=== PATIENT | female | born 1945 | race Caucasian/White ===

== ENCOUNTER 2019-05-10 16:08 | Emergency (ER) | payer MEDICARE, MEDICAID ==
[~2019-05-10] VITALS: Ht 152.4 cm; Wt 70.8 kg
[~2019-05-10 16:08] MED LIST: ASPI81CH43 PO; ESOM40CA39 PO; METF-370 PO; METO-169 PO
[2019-05-10 16:46] VITALS: BP 157/72
== END 2019-05-10 21:53 | disposition left against medical advice (07) ==
LOC: ER 16:08
DX: R35.0 Frequency of micturition (principal); Z53.21 Procedure and treatment not carried out due to patient leaving prior to being seen by health care provider

== ENCOUNTER 2019-05-11 07:19 | Emergency (ER) | payer MEDICAID, MEDICARE ==
[~2019-05-11] VITALS: Ht 154.9 cm; Wt 70.8 kg
[2019-05-11 08:03] LABS: Basophils # (auto) 0.1 uL; Basophils % (auto) 1.1 % (0.0-2.0); Eosinophils # (auto) 0.2 uL; Eosinophils % (auto) 2.6 % (0.0-7.0); Hematocrit 41.5 % (36.0-46.0); Hemoglobin 13.5 g/dL (12.2-16.2); Lymphocytes # (auto) 1.5 uL; Lymphocytes % (auto) 17.4 % (10.0-50.0); Mean Corpuscular Hemoglobin 27.7 pg (28.0-32.0); Mean Corpuscular Hgb Conc. 32.4 g/dL (32.0-36.0); Mean Corpuscular Volume 85.5 fL (80.0-100.0); Monocytes # (auto) 0.6 uL; Monocytes % (auto) 7.5 % (0.0-12.0); Neutrophils # (auto) 6.1 uL; Neutrophils % (auto) 71.4 % (37.0-80.0); Platelet Count (auto) 349 10^3/uL (140-450); Red Blood Cells 4.86 10^6/uL (4.0-5.20); Red Cell Distribution Width 17.8 % (11.8-14.3); White Blood Cell 8.6 10^3/uL (4.4-10.8)
[2019-05-11 08:19] LABS: Albumin 3.8 g/dL (3.4-5.0); BUN/Creatinine Ratio 13.7; Calcium 8.5 mg/dL (8.5-10.1); Potassium 3.7 mmol/L (3.5-5.1)
[2019-05-11 08:22] LABS: Bilirubin, Total 0.3 mg/dL (0.2-1.0); Total Protein 7.4 g/dL (6.4-8.2)
[2019-05-11 09:22] LABS: Urine Bacteria NONE SEEN /hpf (None Seen); Urine Blood 2+ /uL (Negative); Urine Mucus FEW (None Seen); Urine Specific Gravity 1.018 (1.001-1.035); Urine WBC 4026 /hpf (0 - 5); Urine WBC Clumps PRESENT /hpf (None Seen)
[2019-05-11] MEDS ORDERED: SODIUM CHLORIDE 0.9% 1,000 ML IV ONE (10:15)
[2019-05-11] MEDS ORDERED: cefTRIAXone 1GM/50ML D5W 50 ML IV ONE (10:15)
[2019-05-11 10:22] LABS: Amylase 34 U/L (25-115); Lipase 245 U/L (73-393)
[2019-05-11] MEDS ORDERED: MAGNESIUM CITRATE SOLUTION 300 ML BTL PO ONE (13:00)
[2019-05-11 13:59] VITALS: BP 188/86
== END 2019-05-11 14:55 | disposition home or self-care (01) ==
LOC: ER 07:26
DX: N30.00 Acute cystitis without hematuria (principal); K59.00 Constipation, unspecified; J44.9 Chronic obstructive pulmonary disease, unspecified; E11.9 Type 2 diabetes mellitus without complications; K21.9 Gastro-esophageal reflux disease without esophagitis; I10 Essential (primary) hypertension
CPT/HCPCS: 36415; 72192; 80053; 81001; 82150; 83690; 85025; 96365; 99284; J0696